=== PATIENT | female | born 1960 | race Caucasian/White ===

== ENCOUNTER → 2023-05-25 10:19 | Outpatient (REF) | payer OTHER, SELFPAY | LOC: WDC 10:19 | PROVIDERS: ATTENDING PHYSICIAN Family Medicine | DX: Z12.31 Encounter for screening mammogram for malignant neoplasm of breast (principal); Z78.0 Asymptomatic menopausal state | CPT/HCPCS: 77063; 77067; 77080 ==

== ENCOUNTER → 2023-07-30 08:25 | Outpatient (REF) | payer OTHER, SELFPAY | LOC: RAD 08:25 | PROVIDERS: ATTENDING PHYSICIAN Family Medicine | DX: M25.561 Pain in right knee (principal) | CPT/HCPCS: 73564 ==

== ENCOUNTER → 2024-02-09 09:10 | Outpatient (REF) | payer OTHER, SELFPAY | LOC: RAD 09:10 | PROVIDERS: ATTENDING PHYSICIAN Physician Assistant Medical | DX: R07.89 Other chest pain (principal) | CPT/HCPCS: 71101 ==

== ENCOUNTER → 2024-03-10 12:12 | Outpatient (REF) | payer OTHER, SELFPAY | LOC: RAD 12:12 | PROVIDERS: ATTENDING PHYSICIAN Physician Assistant Medical; FAMILY PHYSICIAN Family Medicine | DX: I83.90 Asymptomatic varicose veins of unspecified lower extremity (principal); I83.891 Varicose veins of right lower extremity with other complications | CPT/HCPCS: 93971 ==

== ENCOUNTER → 2024-06-02 08:03 | Outpatient (REF) | payer OTHER, SELFPAY | LOC: WDC 08:03 | PROVIDERS: ATTENDING PHYSICIAN Family Medicine | DX: Z12.31 Encounter for screening mammogram for malignant neoplasm of breast (principal) | CPT/HCPCS: 77063; 77067 ==